=== PATIENT | male | born 1985 | race Caucasian/White ===

== ENCOUNTER 2021-04-16 05:30 | Emergency (ER) | payer OTHER, MEDICAID ==
[~2021-04-16] VITALS: Ht 185.4 cm; Wt 83.9 kg
--- NOTE | 2021-04-16 05:30 | NUR ---
PT JAYDEN AGUIRRES. TAKEN TO BED 4
[2021-04-16 05:32] VITALS: BP 118/78
--- NOTE | 2021-04-16 05:32 | NUR ---
Dr. Willoughby examining patient.
--- NOTE | 2021-04-16 05:47 | NUR ---
PATIENT CAME TO ED HAVE A BRUICE IN THE LEFT EYE IN THE AMBULACE REPORT PATIENT IS BEEN DC FROM [facility] ED FOR HAVE SEIZURE WE START THE SEIZURE PRECAUTION AND START MONITORIN THE PATIENT vitals in normal limits at this time //Ирина HELTON
[2021-04-16] MEDS ORDERED: LACO50TA PO (05:57)
[2021-04-16] MEDS ORDERED: DIVA500T1 PO (05:58)
[2021-04-16] MEDS ORDERED: LAM200 PO (06:00)
[2021-04-16] MEDS ORDERED: LEVE1000 PO (06:02)
--- NOTE | 2021-04-16 06:43 | NUR ---
PATIENT ALSO HAVE MO IN THE HEAD LOOKS LIKE FROM FALLS //DiCaprio RN
--- NOTE | 2021-04-16 06:47 | NUR ---
PT RETURN FROM CT
--- NOTE | 2021-04-16 06:50 | NUR ---
PATIENT ABLE TO TRACK PUPILS EQUAL BRISK AND JUAN MANUEL , SIZE 3 NOT ABLE TO ANSWERS ALL THE QUESTIONS //Ирина RN
--- NOTE | 2021-04-16 07:25 | NUR ---
ORANGE JUICE GIVEN TO THE PATIENT FOR LOW BLOOD GLUCOSE.
[2021-04-16 07:49] VITALS: BP 108/88
--- NOTE | 2021-04-16 08:30 | NUR ---
IV'S REMOVED BEFORE DC.
--- NOTE | 2021-04-16 08:39 | NUR ---
Patient discharged with v/s stable. Written and verbal after care instructions given and explained. Patient verbalized understanding. Ambulatory with steady gait. All questions addressed prior to discharge. Advised to follow up with PMD.
== END 2021-04-16 08:39 | disposition home or self-care (01) ==
LOC: MED 05:30
DX: S09.90XA Unspecified injury of head, initial encounter (principal); R56.9 Unspecified convulsions; E16.2 Hypoglycemia, unspecified; F17.200 Nicotine dependence, unspecified, uncomplicated; Z59.00 Homelessness unspecified; Z88.0 Allergy status to penicillin; Z88.2 Allergy status to sulfonamides; Z79.899 Other long term (current) drug therapy; X58.XXXA Exposure to other specified factors, initial encounter; Y93.89 Activity, other specified; Y92.89 Other specified places as the place of occurrence of the external cause; Y99.8 Other external cause status
CPT/HCPCS: 70450; 72125; 99284

== ENCOUNTER 2021-04-16 09:34 | Emergency (ER) | payer OTHER, MEDICAID ==
[~2021-04-16] VITALS: Ht 172.7 cm; Wt 72.7 kg
[~2021-04-16 09:34] MED LIST: DIVA500T1 PO; LACO50TA PO; LAM200 PO; LEVE1000 PO
--- NOTE | 2021-04-16 09:34 | NUR ---
Patient BIBA to bed 3
[2021-04-16 09:35] VITALS: BP 118/78
--- NOTE | 2021-04-16 09:46 | NUR ---
PATIENT TO CT SCAN VIA GURNEY.
--- NOTE | 2021-04-16 10:11 | NUR ---
lab at bedside
--- NOTE | 2021-04-16 10:21 | NUR ---
FOOD TRAY IS SET UP, PATIENT EATING.
--- NOTE | 2021-04-16 10:43 | NUR ---
DONE WITH FOOD TRAY 100%.
[2021-04-16 10:48] LABS: ANION GAP 7.8 (8-16); CARBON DIOXIDE 26.1 mmol/L (21-32); CREATININE 0.7 mg/dL (0.6-1.3); POTASSIUM 3.9 mmol/L (3.5-5.1)
[2021-04-16 11:15] VITALS: BP 107/55
[2021-04-16] MEDS ORDERED: levETIRAcetam 500 MG TAB PO ONE (11:30)
== END 2021-04-16 12:36 | disposition home or self-care (01) ==
LOC: MED 09:34
DX: S09.90XA Unspecified injury of head, initial encounter (principal); R56.9 Unspecified convulsions; Z88.0 Allergy status to penicillin; Z88.2 Allergy status to sulfonamides; Z79.899 Other long term (current) drug therapy; W19.XXXA Unspecified fall, initial encounter; Y93.89 Activity, other specified; Y92.89 Other specified places as the place of occurrence of the external cause; Y99.8 Other external cause status
CPT/HCPCS: 36415; 70450; 80048; 83605; 84146; 99284